=== PATIENT | male | born 1995 | race Caucasian/White ===

== ENCOUNTER 2019-06-22 10:31 | Emergency (ER) | payer OTHER ==
[2019-06-22] MEDS ORDERED: Lidocaine 1% 20 ML MDV INFILT ONE (10:32)
[2019-06-22] MEDS ORDERED: Lidocaine/EPINEPHrine/Tetracaine Soln 5 ML Each TOP ONE (10:51)
--- NOTE | 2019-06-22 11:45 | EDM.PDOC ---
ED HPI GENERAL MEDICAL PROBLEM - General Chief Complaint: Laceration Stated Complaint: LACERATION TO CHIN Time Seen by Provider: 06/22/19 10:40 Source of Information: Reports: Patient History Limitations: Reports: No Limitations - History of Present Illness INITIAL COMMENTS - FREE TEXT/NARRATIVE: Patient presented to the ED because of a chin laceration. He was working with a wrench, then his chin hit the edge of a working table. He sustain a 3 cm laceration over the left lower jaw,chin area. He is able to open his mouth without any difficulty. Denies any pain on his jaw. Chin Pain Score (Numeric/FACES): 4 - Related Data Allergies Allergy/AdvReac Type Severity Reaction Status Date / Time Sulfa (Sulfonamide Allergy Hives Verified 06/22/19 10:41 Antibiotics) Home Meds: Home Meds FLUoxetine [PROzac] 20 mg DAILY 06/22/19 [History] Past Medical History Respiratory History: Reports: Asthma Other Respiratory History: exercise induced asthma Gastrointestinal History: Reports: Inflammatory Bowel Disease Musculoskeletal History: Reports: Fracture Other Musculoskeletal History: hx fx toes bilat feet Psychiatric History: Reports: Anxiety, Depression Endocrine/Metabolic History: Reports: Obesity/BMI 30+ - Past Surgical History HEENT Surgical History: Reports: Adenoidectomy, Myringotomy w Tube(s) Other HEENT Surgeries/Procedures: bilateral tubes in ears Musculoskeletal Surgical History: Reports: None Social & Family History - Family History Family Medical History: Noncontributory - Tobacco Use Years of Tobacco use: 2 Used Tobacco, but Quit: Yes Month/Year Tobacco Last Used: 2017 - Caffeine Use Caffeine Use: Reports: Coffee, Soda - Recreational Drug Use Recreational Drug Use: No ED ROS GENERAL - Review of Systems Review Of Systems: See Below Constitutional: Reports: No Symptoms HEENT: Reports: No Symptoms Respiratory: Reports: No Symptoms Cardiovascular: Reports: No Symptoms Endocrine: Reports: No Symptoms GI/Abdominal: Reports: No Symptoms : Reports: No Symptoms Musculoskeletal: Reports: No Symptoms Skin: Reports: Wound Neurological: Reports: No Symptoms Psychiatric: Reports: No Symptoms Hematologic/Lymphatic: Reports: No Symptoms Immunologic: Reports: Seasonal Allergy ED EXAM, SKIN/RASH Exam: See Below Exam Limited By: No Limitations General Appearance: Alert, No Apparent Distress Eye Exam: Bilateral Eye: PERRL Ears: Normal External Exam, Normal Canal Nose: Normal Inspection, Normal Mucosa Throat/Mouth: Normal Inspection, Normal Lips Head: Atraumatic, Normocephalic Neck: Normal Inspection, Supple, Non-Tender Respiratory/Chest: No Respiratory Distress, Lungs Clear, Normal Breath Sounds Cardiovascular: Normal Peripheral Pulses, Regular Rate, Rhythm, No Edema, No Gallop, No JVD, No Murmur, No Rub GI/Abdominal: Normal Bowel Sounds, Soft, Non-Tender, No Organomegaly, No Distention, No Abnormal Bruit, No Mass Back Exam: Normal Inspection, Full Range of Motion Extremities: Normal Inspection, Normal Range of Motion Neurological: Alert, Oriented, CN II-XII Intact, Normal Cognition ED SKIN PROCEDURES - Laceration/Wound Repair Other Appearance: Superficial Anesthetic Type: Local Local Anesthesia - Lidocaine (Xylocaine): 1% Plain Local Anesthetic Volume: 3cc Skin Prep: Chlorhexidine (Hibiciens), Saline Exploration/Debridement/Repair: Wound Explored Closed with: Sutures Lac/Wound length In cm: 3 Suture Size: 3-0 # of Sutures: 4 Suture Type: Nylon Course - Vital Signs Text/Narrative:: UTD with immunization see procedure Last Recorded V/S: Last Vital Signs Temp 36.9 C 06/22/19 10:35 Pulse 83 06/22/19 10:35 Resp 18 06/22/19 10:35 BP 163/97 H 06/22/19 10:35 Pulse Ox 96 06/22/19 10:35 - Orders/Labs/Meds Meds: Medications Discontinued Medications Generic Name Dose Route Start Last Admin Trade Name Ijeoma PRN Reason Stop Dose Admin Lidocaine/Tetracaine 5 ml 06/22/19 10:51 06/22/19 11:05 Let Soln TOP 06/22/19 10:52 5 ml ONETIME ONE Administration Departure - Departure Time of Disposition: 11:45 Disposition: Home, Self-Care 01 Condition: Good Clinical Impression: Laceration of chin - Discharge Information Instructions: Laceration Care, Adult Referrals: PCP,Not In Area [Primary Care Provider] - Forms: ED Department Discharge Additional Instructions: Please read discharge instructions on wound or laceration care No need to apply an antibiotic ointment you may take ibuprofen 800 mg with tylenol 1000 mg 3 times daily as needed for pain do not cover your wound when your inside the house, at work apply vaseline then cover with a bandaid removal of suture in 10 days Sepsis Event Note - Evaluation Sepsis Screening Result: No Definite Risk - Focused Exam Vital Signs: Vital Signs Temp Pulse Resp BP Pulse Ox 06/22/19 10:35 36.9 C 83 18 163/97 H 96 Date Exam was Performed: 06/22/19 Time Exam was Performed: 11:47
== END 2019-06-22 11:53 | disposition home or self-care (01) ==
LOC: FB.ED 10:31
DX: S01.81XA Laceration without foreign body of other part of head, initial encounter (principal); J45.909 Unspecified asthma, uncomplicated; F32.9 Major depressive disorder, single episode, unspecified; E66.9 Obesity, unspecified; Z68.38 Body mass index [BMI] 38.0-38.9, adult; Z87.891 Personal history of nicotine dependence; Z88.2 Allergy status to sulfonamides; W22.8XXA Striking against or struck by other objects, initial encounter
CPT/HCPCS: 12013; 99282; A9270; J2001

== ENCOUNTER 2021-05-02 15:51 | Emergency (ER) | payer BC, OTHER ==
[2021-05-02] MEDS ORDERED: Ondansetron 4 MG Tab.DIS PO ONE (15:52)
[2021-05-02] MEDS ORDERED: Sodium Chloride 0.9% 10 ML Syringe FLUSH PRN (16:29)
[2021-05-02] MEDS ORDERED: Morphine 4 MG/ML VIAL IVPUSH STA (16:31)
[2021-05-02] MEDS ORDERED: Ondansetron 4 MG/2 ML SDV IVPUSH STA (16:32)
[2021-05-02] MEDS ORDERED: Sodium Chloride 0.9% 1,000 ML IV SCH (16:45)
[2021-05-02] MEDS ORDERED: Iopamidol 755 MG/ML 150 ML Bottle IV ONE (16:47)
== END 2021-05-02 18:40 | disposition home or self-care (01) ==
LOC: FB.ED 15:51
DX: A08.4 Viral intestinal infection, unspecified (principal); E86.0 Dehydration; E66.9 Obesity, unspecified; Z68.41 Body mass index [BMI] 40.0-44.9, adult; Z88.2 Allergy status to sulfonamides; Z79.899 Other long term (current) drug therapy
CPT/HCPCS: 36415; 74177; 80053; 81001; 82150; 83690; 85025; 96361; 96374; 96375; 99284; A9270; J2270; J2405; J7030; Q9967